=== PATIENT | female | born 1960 | race Caucasian/White ===

== ENCOUNTER → 2017-11-16 | Outpatient (CLI) | payer OTHER ==
--- NOTE | ~2017-11-16 | CNG ---
[facility] [place] [address] CYTO-NONGYN REPORT PROCEDURE Name: BLAINE PICHARDO Room #: GRAHAM Ureña.#: [id number] Admission: 11/16/17 Date of : 58 Discharge: Report #: [id number] Path Case #: [id number] CYTOPATHOLOGY REPORT COLLECTION DATE: 11/16/2017 RECEIVED DATE: 11/16/2017 SUBMITTING PHYS: Dr. Daniel Cordova OTHER PHYS: CLINICAL HISTORY: Thyroid nodule SPECIMEN(S) RECEIVED: A.Fine needle aspiration,Right thyroid * * * * * * * * * * * * FINAL DIAGNOSIS: A. Thyroid, Right thyroid, Fine needle aspiration: BETHESDA CATEGORY II. SPECIMEN CONSISTS OF SCANT FOLLICULAR CELLS, HEMOSIDERIN-LADEN MACROPHAGES, COLLOID, AND BLOOD, FAVOR ADENOMATOID NODULE. COMMENT: Examination shows mostly blood on the smears with scattered rare groups of thyroid follicular cells, scant watery colloid, and rare hemosiderin laden macrophages. Nuclear features of papillary carcinoma are not seen. Interpretation is limited by the extensive amount of blood and some air-drying artifact. Findings are suggestive of an adenomatoid nodule. Please note sample may not be public service representative. Correlate clinically and follow-up as indicated. (IUV; 11/17/17) PATHOLOGIST: Lolis Crowe M.D. REPORT ELECTRONICALLY SIGNED BY: Lolis Crowe M.D. DATE/TIME: 11/17/2017 15:22 * * * * * * * * * * * * GROSS PATHOLOGY: A. Fine needle aspiration,Right thyroid: The specimen is labeled "Blaine Pichardo" and consists of two fixed slides and two air dried slides. Twenty-seven mL of cloudy red fluid in fixative from the needle rinse is also submitted and one ThinPrep slide and an alcohol fixed cell block were prepared from this material. One RNA retain vial has been received and held for additional studies. (mm 11.16.2017) [employer] SUPERVISOR(S): LANDRY [place]([facility]) INITIAL CPT CODE(S): [address] [address] CYTO-NONGYN REPORT PROCEDURE Name: BLAINE PICHARDO Room #: REG CL M..#: [id number] Admission: 11/16/17 Date of : 58 Discharge: Report #: [id number] Path Case #: [id number]; [id number], [id number] Professional services performed by [facility] at [address] , [place] [address] Technical services performed by [facility] at [address] [place] [address]., [address] [address]. [facility] [address] [place] [address], [facility] [address] [place] [address] PHONE: [phone] DIRECTOR: Demetrius Richardson M.D. * * * END OF REPORT * * *
== END | disposition home or self-care (01) ==
LOC: ULTRA 06:26
DX: E04.1 Nontoxic single thyroid nodule (principal)

== ENCOUNTER → 2019-05-16 | Outpatient (CLI) | payer OTHER | LOC: ULTRA 08:43 | DX: E04.2 Nontoxic multinodular goiter (principal) ==